=== PATIENT | female | born 1950 | race African-American/Black ===

== ENCOUNTER → 2020-11-15 | Outpatient (CLI) | payer MEDICARE ==
[~2020-11-15] MED LIST: AMITRIPTYLINE H50 MG PO; ASPIRIN EC325 MG PO; CALCIUM PO; CITALOPRAM HBR20 MG PO; ENDOCET 7.5-321 EACH PO; FISH OIL/OMEGA 3 PO; MICROZIDE12.5 MG PO; OMEGA 3 PO; PLENDIL 5 MG TAB5 MG PO; SIMVASTATIN10 MG PO; TOPIRAMATE50 MG PO; VERAPAMIL PO; VIT E PO
[2020-11-15 08:52] LABS: HEMOGLOBIN 13.1 gm/dl (12.3-15.3); RED BLOOD COUNT 4.29 M/UL (4.00-5.10); WHITE BLOOD COUNT 6.5 K/UL (4.5-11.0)
== END ==
LOC: OPSV2 08:00
PROVIDERS: Orthopaedic Surgery
DX: Z01.812 Encounter for preprocedural laboratory examination (principal); M17.11 Unilateral primary osteoarthritis, right knee
CPT/HCPCS: 80048; 83036; 85025; 87081

== ENCOUNTER → 2020-11-26 | Outpatient (CLI) | payer OTHER | LOC: LAB 11:39 | PROVIDERS: Orthopaedic Surgery | DX: Z01.812 Encounter for preprocedural laboratory examination (principal); M17.11 Unilateral primary osteoarthritis, right knee; I10 Essential (primary) hypertension | CPT/HCPCS: 36415; 80048; 86850; 86900; 86901 ==

== ENCOUNTER 2020-11-27 06:47 | Day surgery (SDC) | payer OTHER ==
[~2020-11-27] VITALS: Ht 175.3 cm; Wt 93.4 kg
[~2020-11-27 06:47] MED LIST changes: -ASPIRIN EC325 MG PO; -ENDOCET 7.5-321 EACH PO
[2020-11-27] MEDS ORDERED: ENDOCET 7.5-321 EACH PO (12:41)
[2020-11-27] MEDS ORDERED: ASPIRIN EC325 MG PO (12:41)
[2020-11-28 05:11] LABS: HEMOGLOBIN 11.5 gm/dl (12.3-15.3); RED BLOOD COUNT 3.86 M/UL (4.00-5.10); WHITE BLOOD COUNT 6.9 K/UL (4.5-11.0)
[2020-11-28 05:42] LABS: BUN/CREATININE RATIO 14 (0-10)
== END 2020-11-28 14:32 | disposition home health service (06) ==
LOC: OR 06:47 → EDSTATUS 11:30 → M/S 17:35 → OR 11-28 14:32
PROVIDERS: Orthopaedic Surgery
DX: M17.0 Bilateral primary osteoarthritis of knee (principal); G89.18 Other acute postprocedural pain; I10 Essential (primary) hypertension; E78.5 Hyperlipidemia, unspecified; K21.9 Gastro-esophageal reflux disease without esophagitis; Z88.0 Allergy status to penicillin; Z88.2 Allergy status to sulfonamides; Z88.5 Allergy status to narcotic agent; Z91.040 Latex allergy status; Z79.899 Other long term (current) drug therapy
CPT/HCPCS: 36415; 73560; 80048; 85027; 97116-GP-CQ; 97161; 97166; 97530-GP-CQ; 97535; C1776; J0171; J0592; J0690; J1100; J1170; J1200; J1885; J2400; J2405; J2704; J2795; J3370; J7030; J7120